=== PATIENT | female | born 1980 | race Caucasian/White ===

== ENCOUNTER 2022-08-13 14:33 | Emergency (ER) | payer BC ==
[~2022-08-13] VITALS: Ht 167.6 cm
[2022-08-13] MEDS ORDERED: MEDROL DOSEPAK4 MG PO (16:51)
[2022-08-13] MEDS ORDERED: CYCLOBENZAPRINE5 M3 PO (16:52)
[2022-08-13] MEDS ORDERED: Motrin,Rufen800 MG PO (17:28)
== END 2022-08-13 17:36 | disposition home or self-care (01) ==
LOC: ED 14:33
DX: M54.12 Radiculopathy, cervical region (principal); Z88.0 Allergy status to penicillin; M25.511 Pain in right shoulder